=== PATIENT | male | born 1980 | race Two or more races ===

== ENCOUNTER 2019-08-27 16:04 | Emergency (ER) | payer OTHER ==
[~2019-08-27] VITALS: Ht 182.9 cm; Wt 158.5 kg
[~2019-08-27 16:04] MED LIST: GABA800T5 PO; LISI-170 PO; OXYC-432 PO
[2019-08-27 16:48] LABS: CULTURE INDICATED? NO; MICROSCOPIC AUTO
--- NOTE | 2019-08-27 16:51 | NUR ---
POST VOID RESIDUAL 166. PROVIDER NOTIFIED.
--- NOTE | 2019-08-27 16:52 | NUR ---
THIS IS A 38 YO M WITH C/O IRRIATION ON HIS PENIS, ABDOMINAL PAIN AND WEAKNESS AND CRAMPING IN HIS LEGS SINCE YESTERDAY. TIP OF PENIS IS VISIBLY RED. PATIENT IS NO ACUTE DISTRESS. RESPIRATIONS ARE EVEN AND UNLABORED.
--- NOTE | 2019-08-27 17:29 | NUR ---
VITALS UPDATED. PATIENT IS RESTING ON GURNEY WITH CALL LIGHT IN REACH AND FAMILY AT BEDSIDE. DENIES FURTHER NEEDS AT THIS TIME.
[2019-08-27 17:41] LABS: BASOPHILS # (AUTO) 0.04 x10^3/uL (0-0.1); BASOPHILS % (AUTO) 0 % (0-1); EOSINOPHILS # (AUTO) 0.13 x10^3/uL (0-0.4); EOSINOPHILS % (AUTO) 1 % (1-7); LYMPHOCYTES # (AUTO) 2.46 x10^3/uL (1-3.4); LYMPHOCYTES % (AUTO) 22 % (22-44); MD NO; MEAN CORPUSCULAR HEMOGLOBIN 29.1 pg (27.5-34.5); MEAN CORPUSCULAR HGB CONC 32.4 g/dL (33.2-36.2); MONOCYTES # (AUTO) 0.63 x10^3/uL (0.2-0.8); MONOCYTES % (AUTO) 6 % (2-9); NEUTROPHILS # (AUTO) 7.83 x10^3/uL (1.8-6.8); NEUTROPHILS % (AUTO) 71 % (42-75); PLATELET COUNT 319 x10^3/uL (130-400); RED BLOOD COUNT 5.29 x10^6/uL (4.38-5.82); RED CELL DISTRIBUTION WIDTH 13.5 % (9.4-14.8)
[2019-08-27 17:45] LABS: ANION GAP 12 mmol/L (5-15); CALCIUM 8.7 mg/dL (8.5-10.1); CHLORIDE 88 mmol/L (98-107); CREATININE 1.46 mg/dL (0.7-1.3)
--- NOTE | 2019-08-27 18:02 | NUR ---
CRITICAL GLUCOSE 826 RECEIVED FROM LAB. REPORTED TO PROVIDER.
--- NOTE | 2019-08-27 18:12 | NUR ---
VOIDED 900ML OF LIGHT YELLOW URINE
[2019-08-27 18:25] LABS: HEMOGLOBIN A1C 12.1 % (4.2-6.3)
[2019-08-27] MEDS ORDERED: INSULIN REGULAR 100 UNITS/ML, 3ML VIAL SQ-INSULIN ONE (18:30)
[2019-08-27] MEDS ORDERED: SODIUM CHLORIDE 0.9% 1,000ML IVBOLUS ONE ×3 (18:30→21:00)
--- NOTE | 2019-08-27 18:43 | NUR ---
PIV STARTED AND 1L NS STARTED PER EMAR. VITALS UPDATED. PATIENT RESTING ON GURNEY WITH CALL LIGHT IN REACH.
[2019-08-27] MEDS ORDERED: INSULIN SINGLE DOSE, ER ONE ×3 (18:55→21:00)
--- NOTE | 2019-08-27 19:08 | NUR ---
REPORT FROM VIRI, RNS
--- NOTE | 2019-08-27 20:21 | NUR ---
BG VIA FINGER STICK READ 'HI' MD RUCKER NOTIFIED
[2019-08-27] MEDS ORDERED: INSULIN REGULAR 100 UNITS/ML, 3ML VIAL IVPush ONE ×2 (20:30→21:00)
--- NOTE | 2019-08-27 21:43 | NUR ---
PER ER MD CELAYA, DC PT
[2019-08-27 21:51] VITALS: BP 115/59
== END 2019-08-27 22:25 | disposition home or self-care (01) ==
LOC: ED 17:50
DX: E11.65 Type 2 diabetes mellitus with hyperglycemia (principal); B37.42 Candidal balanitis; N28.9 Disorder of kidney and ureter, unspecified
CPT/HCPCS: 36415; 80048; 81001; 82962; 83036; 85025; 96361; 96372; 96374; 96375; 99284; J1815; J7030

== ENCOUNTER 2019-08-29 21:54 | Emergency (ER) | payer OTHER ==
[~2019-08-29] VITALS: Ht 182.9 cm; Wt 161.6 kg
--- NOTE | 2019-08-29 22:44 | NUR ---
PT IN GOWN IN [facility] WITH FAMILY AT . DR CASTRO AT FOR PT HISTORY AND ASSESSMENT. PT HAS CALL LIGHT WITHIN REACH AT THIS TIME. AWAITING NEW ORDERS.
[2019-08-29 23:19] LABS: BASOPHILS # (AUTO) 0.05 x10^3/uL (0-0.1); BASOPHILS % (AUTO) 1 % (0-1); EOSINOPHILS # (AUTO) 0.16 x10^3/uL (0-0.4); EOSINOPHILS % (AUTO) 2 % (1-7); LYMPHOCYTES # (AUTO) 3.41 x10^3/uL (1-3.4); LYMPHOCYTES % (AUTO) 37 % (22-44); MD NO; MEAN CORPUSCULAR HEMOGLOBIN 29.3 pg (27.5-34.5); MEAN CORPUSCULAR HGB CONC 33.1 g/dL (33.2-36.2); MEAN CORPUSCULAR VOLUME 88.6 fL (81-97); MEAN PLATELET VOLUME 9.3 fL (7.4-10.4); MONOCYTES # (AUTO) 0.57 x10^3/uL (0.2-0.8); MONOCYTES % (AUTO) 6 % (2-9); NEUTROPHILS # (AUTO) 4.95 x10^3/uL (1.8-6.8); NEUTROPHILS % (AUTO) 54 % (42-75); PLATELET COUNT 294 x10^3/uL (130-400); RED CELL DISTRIBUTION WIDTH 13.7 % (9.4-14.8)
[2019-08-29 23:31] LABS: ALBUMIN 3.2 g/dL (3.4-5.0); ANION GAP 8 mmol/L (5-15); CALCIUM 8.9 mg/dL (8.5-10.1); CHLORIDE 96 mmol/L (98-107)
[2019-08-30] MEDS ORDERED: INSULIN REGULAR 100 UNITS/ML, 3ML VIAL SQ-INSULIN ONE
[2019-08-30] MEDS ORDERED: INSULIN SINGLE DOSE, ER ONE (00:03)
--- NOTE | 2019-08-30 00:47 | NUR ---
RECEIVED REPORT FROM EDU PAUL TO ASSUME CARE OF PT. PT. TO D/C HOME.
--- NOTE | 2019-08-30 01:12 | NUR ---
DR. CASTRO IN TO DISCUSS D/C PLAN WITH PT.
[2019-08-30 01:27] VITALS: BP 140/67
== END 2019-08-30 01:36 | disposition home or self-care (01) ==
LOC: ED 08-30 00:12
DX: E11.65 Type 2 diabetes mellitus with hyperglycemia (principal); I10 Essential (primary) hypertension
CPT/HCPCS: 80048; 82040; 82962; 85025; 93005; 96372; 99284; J1815; 90471